=== PATIENT | male | born 1950 | race Caucasian/White ===

== ENCOUNTER 2018-02-16 09:55 | Day surgery (SDC) | payer OTHER ==
[~2018-02-16] VITALS: Ht 175.3 cm; Wt 88.0 kg
[~2018-02-16 09:55] MED LIST: ASPI-496 PO; CLOP75TA PO; GLIM1TAB2 PO; LISI-170 PO; METF100010 PO; SIMV40TA PO; TAMS0.4C2 PO
[2018-02-16] MEDS ORDERED: LACTATED RINGERS 1,000 ML IV SCH (10:22)
[2018-02-16 10:50] VITALS: BP 127/77
[2018-02-16] MEDS ORDERED: FENTANYL PF 250 MCG/5ML ONE (11:24)
[2018-02-16] MEDS ORDERED: MIDAZOLAM 1 MG/ML, 2ML ONE (11:24)
[2018-02-16] MEDS ORDERED: SUCCINYLCHOLINE 20 MG/ML, 10ML ONE (11:28)
[2018-02-16] MEDS ORDERED: CEFAZOLIN 1,000 MG ONE (11:28)
[2018-02-16] MEDS ORDERED: PROPOFOL 10 MG/ML, 20ML ONE (11:28)
[2018-02-16] MEDS ORDERED: ONDANSETRON ODT 4 MG ONE (11:28)
[2018-02-16] MEDS ORDERED: ACETAMINOPHEN 500 MG TABLET PO ONE (11:30)
[2018-02-16] MEDS ORDERED: OxyconTIN ER 10 MG TAB.ER PO ONE (11:30)
[2018-02-16] MEDS ORDERED: OXYcodone 5 MG/5 ML ORAL.SOL UDC PO PRN (13:30)
[2018-02-16] MEDS ORDERED: ONDANSETRON ODT 8 MG PO PRN (13:30)
[2018-02-16] MEDS ORDERED: MORPHINE SULFATE 4 MG/ML, 1ML IVPush PRN (13:30)
[2018-02-16] MEDS ORDERED: PROMETHAZINE 12.5 MG SUPP PR PRN (13:30)
[2018-02-16] MEDS ORDERED: PROMETHAZINE 25 MG/ML, 1ML IV PRN (13:30)
[2018-02-16] MEDS ORDERED: hydrALAzine 20 MG/ML, 1ML IV PRN (13:30)
[2018-02-16] MEDS ORDERED: MEPERIDINE/PF 25MG/0.5ML IVPush PRN (13:30)
[2018-02-16] MEDS ORDERED: FENTANYL PF 100 MCG/2ML IV PRN (13:30)
[2018-02-16] MEDS ORDERED: OPIUM/BELLADONNA SUPP.RECT 16.2-30 MG ONE (13:41)
[2018-02-16] MEDS ORDERED: OPIUM/BELLADONNA SUPP.RECT 16.2-30 MG PR PRN (14:00)
== END 2018-02-16 15:50 ==
LOC: OUT 09:55
PROVIDERS: ATTEND Urology
DX: N40.1 Benign prostatic hyperplasia with lower urinary tract symptoms (principal); I10 Essential (primary) hypertension
CPT/HCPCS: 52630; 82962; 88305; J0330; J0690; J2250; J2704; J3010; J7120; Q0162